=== PATIENT | male | born 1950 | race Caucasian/White ===

== ENCOUNTER 2017-08-30 10:54 | Emergency (ER) | payer BC, OTHER ==
[~2017-08-30] VITALS: Ht 177.8 cm; Wt 80.5 kg
[~2017-08-30 10:54] MED LIST: FLOMAX0.4 MG PO; KEFLEX500 MG PO
[2017-08-30 12:01] LABS: HEMATOCRIT 43.2 % (38.0-50.0); MCH 32.3 PG (29.0-34.0); MCHC 34.5 G/DL (30.0-36.0); MCV 93.5 FL (86-99); MEAN PLAT.VOLUME 11.3 uM^3 (9.0-12.4); PLATELET COUNT 171 K/uL (156-360); RBC DIS.WIDTH-CV 11.8 % (11.8-14.6); RBC DIS.WIDTH-SD 40.2 % (39-53); RED BLOOD COUNT 4.62 M/uL (4.00-5.50); WHITE BLOOD COUNT 5.8 K/uL (4.1-10.2)
[2017-08-30 12:24] LABS: CHLORIDE 106 mEq/L (99-109); POTASSIUM 3.6 mEq/L (3.7-5.4); SODIUM 138 mEq/L (136-147)
[2017-08-30 12:26] LABS: GLUCOSE 101 mg/dL (70-99)
[2017-08-30 12:27] LABS: ANION GAP 11 MEQ/L (2-14)
[2017-08-30 12:30] LABS: GFR ESTIMATE (CALCULATED) > 59 mL/min/
[2017-08-30 12:31] LABS: UREA NITROGEN (BUN) 18 mg/dL (9-23)
[2017-08-30 13:14] LABS: ADD MIUA? YES; BILIRUBIN NEGATIVE; BLOOD LARGE; COLOR LT YELLOW ((YELLOW)); GLUCOSE (STRIP) NEGATIVE; KETONES NEGATIVE; LEUKOCYTES NEGATIVE; NITRITE NEGATIVE; PROTEIN (STRIP) NEGATIVE; SPECIFIC GRAVITY 1.003 (1.000-1.030); UROBILINOGEN 0.2 MG/DL (0.2-1.0)
[2017-08-30 13:16] LABS: BACTERIA RARE /HPF; EPITHELIAL CELLS NONE SEEN /HPF; MUCUS NONE SEEN /LPF; RED BLOOD CELLS 0-5 /HPF (0-5); UCUL ADDED? NO; WHITE BLOOD CELLS 0-5 /HPF (0-5)
[2017-08-30 14:42] VITALS: BP 151/73
== END 2017-08-30 14:43 | disposition home or self-care (01) ==
LOC: EME 10:54
PROVIDERS: Emergency Medicine
DX: R31.9 Hematuria, unspecified (principal); C61 Malignant neoplasm of prostate; Z87.891 Personal history of nicotine dependence
CPT/HCPCS: 80048; 81003; 85027; 99281; 99284